=== PATIENT | male | born 1990 | race Caucasian/White ===

== ENCOUNTER 2024-12-14 00:58 | Emergency (ER) | payer OTHER ==
[2024-12-14 01:15] VITALS: RESP 18; TEMP 99.1
--- NOTE | 2024-12-14 01:56 | ED ---
General Adult HPI - General Chief complaint: Syncope Stated complaint: Scynope Time Seen by Provider: 12/14/24 01:18 Source: patient, EMS Mode of arrival: EMS Limitations: no limitations - History of Present Illness Initial comments: Patient is a 34-year-old male with past medical history of alcoholism presenting today for syncopal episode. Patient was at [facility] where he had reported for rehabilitation from alcoholism earlier today when he stood up from his chair walked about 10 feet felt lightheaded and had a syncopal episode. He does not think he was unconscious for very long and he did not have any seizure-like activity noted. He did not bite his tongue or have urinary incontinence. Patient states that this happened to him about 4 times last summer. He was admitted and had an extensive evaluation without any significant findings, per patient. He denies any family history of sudden cardiac currently denies any chest pain or shortness of breath. He did hit his head after he syncopized and and currently denies any headache, dizziness, numbness or weakness. Denies neck pain. Is not on blood thinners. He does feel shaky. No history alcohol w/drawl seizures. Last drink was yesterday morning. States he does infrequen tly use cocaine, last use was about 1 week ago. Denies any recent nausea, vomiting, diarrhea, abdominal pain, melena or hematochezia. Denies hemoptysis, history of cancer, is not on hormone replacement therapy and is a non-smoker. No recent surgeries, hospitalizations, or travel. Denies fevers, endorses chills. Denies any auditory or visual hallucinations. History of alcohol withdrawal seizures. - Related Data Allergies Allergy/AdvReac Type Severity Reaction Status Date / Time No Known Allergies Allergy Verified 12/14/24 01:15 Review of Systems ROS Statement: Those systems with pertinent positive or pertinent negative responses have been documented in the HPI. ROS Other: All systems not noted in ROS Statement are negative. Past Medical History Past Medical History: No Reported History Additional Past Surgical History / Comment(s): colonoscopy Past Psychological History: Depression Smoking Status: Vaper Past Alcohol Use History: Daily Past Drug Use History: Cocaine General Exam - General Exam Comments Initial Comments: PE: CONSTITUTIONAL: No apparent distress, well appearing SKIN: Warm, dry, no jaundice, hives or petechiae EYES: Pupils are equally round, extraocular movements intact without nystagmus, clear conjunctiva, non-icteric sclera HENT: Normocephalic, small contusion to the right posterior occiput, dry mucus membranes, oropharynx clear without exudates, mild tongue fasciculations NECK: , Full range of motion, normal appearance, no midline spinal tenderness to palpation, . There is no midline cervical neck tenderness or step-offs. The patient denies any numbess, tingling, or weakness of the extremities when moving neck through full ROM. The patient is able to range their neck completely without midline cervical pain, numbness, tingling or weakness. PULMONARY: Clear to auscultation without wheezes, rhonchi, or rales, normal excursion, no accessory muscle use and no stridor CARDIOVASCULAR: Regular rate, rhythm, normal S1 and S2. No appreciated murmurs, rubs or gallops. Strong radial pulses with intact distal perfusion. No lower extremity edema GASTROINTESTINAL: Soft, active bowel sounds throughout, non-tender, non- distended, no palpable masses, no rebound or guarding. No hepatosplenomegaly MUSCULOSKELETAL: Extremities have no gross deformity, no edema, redness, or swelling. No calf swelling NEUROLOGIC:_a/o x 3, GCS 15, normal mentation and speech. Moves all extremities x 4 without motor or sensory deficit. Mild tremor in the bilateral UE with hands outstretched PSYCHIATRIC:_normal mood and affect, thought process is clear and linear Limitations: no limitations Course Vital Signs 12/14/24 12/14/24 12/14/24 01:08 04:10 05:18 Temperature 99.1 F Pulse Rate 78 70 70 Respiratory 18 18 18 Rate Blood Pressure 130/69 121/71 122/75 O2 Sat by Pulse 96 97 95 Oximetry EKG Findings - EKG Comments: EKG Findings:: Sinus rhythm, rate 63 bpm MS interval 124 ms QRS duration 96 ms QT/QTc 456/464 ms, prolonged QT interval, normal axis, no ST elevations or depressions, no Brugada pattern, no delta waves. Repeat EKG performed due to prolonged QT on initial EKG. Performed at 4:56 AM, rate 64 bpm MS interval 138 ms QT/QTc 418/420 ms, normal axis, no ST elevations or depressions, no arrhythmia Medical Decision Making - Medical Decision Making Was pt. sent in by a medical professional or institution ([facility], [facility], urgent care, hospital, or residential...) When possible be specific Patient was sent by [facility] Did you speak to anyone other than the patient for history (EMS, parent, family, police, friend...)? What history was obtained from this source @ -No Did you review nursing and triage notes (agree or disagree)? Why? @ -I reviewed nursing and triage notes Were old charts reviewed (outside hosp., previous admission, EMS record, old EKG, old radiological studies, urgent care reports/EKG's, residential records)? Report findings @ -Medical records reviewed no prior records available for review Differential Diagnosis (chest pain, altered mental status, abdominal pain women, abdominal pain men, vaginal bleeding, weakness, fever, dyspnea, syncope, headache, dizziness, GI bleed, back pain, seizure, CVA, palpatations, mental health, musculoskeletal)? @Differential Syncope: Valvular disease, hypertrophic cardiomyopathy, tamponade, tachycardia, bradycardia, ACS, arrhythmia, hypovolemia,anemia, seizure, hypoglycemia, this is not meant to be an all-inclusive list. EKG interpreted by me (3pts min.). @ -As above X-rays interpreted by me (1pt min.). @X-ray shows no cardiomegaly, consolidations or pneumothorax CT interpreted by me (1pt min.). @CT brain shows no evidence of hemorrhage or skull fracture U/S interpreted by me (1pt. min.). @ -None done What testing was considered but not performed or refused? (CT, X-rays, U/S, labs)? Why? @ -None What meds were considered but not given or refused? Why? @ -None Did you discuss the management of the patient with other professionals (professionals i.e. [facility], [facility], lab, RT, psych nurse, social worker clinical, consumer advocate, t eacher, command center officer, caser up)? Give summary @ -No Was smoking cessation discussed for >3mins.? @ -No Was critical care preformed (if so, how long)? @ -No Were there social determinants of health that impacted care today? How? (Homelessness, low income, unemployed, alcoholism, drug addiction, transportation, low edu. Level, literacy, decrease access to med. care, shelter, rehab)? @Yes, alcohol addiction Was there de-escalation of care discussed even if they declined (Discuss DNR or withdrawal of care, Hospice)? @ -No What co-morbidities impacted this encounter? (DM, HTN, Smoking, COPD, CAD, Cancer, CVA, ARF, Chemo, Hep., AIDS, mental health diagnosis, sleep apnea, morbid obesity)? Alcoholism Was patient admitted / discharged? Hospital course, mention meds given and route, prescriptions, significant lab abnormalities, going to OR and other pertinent info. @Discharged -patient is a 34-year-old gentleman presenting from [facility] rehab facility today for syncopal episode.Vital signs within acceptable limits on arrival, no hypotension or tachycardia noted. On my assessment patient has c-collar on however CT C-spine not indicated according to Stanley C-spine rule negative. Cleared patient C-spine. Exam otherwise significant for small hematoma to the posterior occiput, no focal neurologic deficits, patient does have mild tongue fasciculations and mild tremors with arms outstretched. No seizure-like activity. At the top my differential is arrhythmia, alcohol drawl seizure, orthostatic hypotension or electrolyte abnormality, additional differentials as noted above. CIWA 3, will administer 5 oral valium, IV fluids, vitamins. Will obtain CT brain due to syncopal episode with head trauma and palpable hematoma. Hemoglobin noted to be 9.3, labs consistent with microcytic anemia. Patient earlier denied melena or hematochezia. I suspect anemia secondary to malnutri tion in the setting of alcoholism. Magnesium 1.6. IV magnesium given repeat EKG performed showed shortening of the QT interval. On reassessment patient's withdrawal symptoms have improved though he is still mildly tremulous. Will provide with additional oral Valium. Given low CIWA, patient has had a prior workup for syncopal episodes, otherwise unremarkable workup here, plan for discharge back to [facility]. Patient agreeable with plan of care. In my medical judgment there is currently no evidence of an immediate life- threatening or surgical condition. Discharge is therefore indicated at this time. Discharge treatment instructions, follow up instructions, and appropriate emergency department return precautions were discussed with the patient and/or medical decision maker. Patient and/or medical decision maker expressed understanding of and agreed with the treatment plan, follow up instructions, and emergency department return precaution. All patient's and/or medical decision maker's questions were answered. Undiagnosed new problem with uncertain prognosis? @ -No Drug Therapy requiring intensive monitoring for toxicity (Heparin, Nitro, Insulin, Cardizem)? @ -No Were any procedures done? @ -No Diagnosis/symptom? @Syncopal episode Acute, or Chronic, or Acute on Chronic? @ -Acute Uncomplicated (without systemic symptoms) or Complicated (systemic symptoms)? @Complicated Side effects of treatment? @ -No Exacerbation, Progression, or Severe Exacerbation? @ -No Poses a threat to life or bodily function? How? (Chest pain, [place], [place], pneumonia, PE, COPD, DKA, ARF, appy, cholecystitis, CVA, Diverticulitis, Homicidal, Suicidal, threat to staff... and all critical care pts) @ -[No - Lab Data Result diagrams: 12/14/24 01:14 12/14/24 01:14 Lab Results 12/14/24 12/14/24 12/14/24 Range/Units 01:14 01:14 01:14 WBC 6.1 (3.8-10.6) k/uL RBC 4.07 L (4.30-5.90) m/uL Hgb 9.3 L (13.0-17.5) gm/dL Hct 29.0 L (39.0-53.0) % MCV 71.3 L (80.0-100.0) fL MCH 22.8 L (25.0-35.0) pg MCHC 31.9 (31.0-37.0) g/dL RDW 19.2 H (11.5-15.5) % Plt Count 164 (150-450) k/uL MPV 7.9 Neutrophils % 64 % Lymphocytes % 24 % Monocytes % 8 % Eosinophils % 2 % Basophils % 0 % Neutrophils # 3.9 (1.3-7.7) k/uL Lymphocytes # 1.4 (1.0-4.8) k/uL Monocytes # 0.5 (0-1.0) k/uL Eosinophils # 0.1 (0-0.7) k/uL Basophils # 0.0 (0-0.2) k/uL Hypochromasia Marked Anisocytosis Slight Microcytosis Marked PT 12.3 (10.0-12.5) sec INR 1.1 (<1.2) APTT 19.6 L (22.0-30.0) sec Sodium 133 L (137-145) mmol/L Potassium 4.1 (3.5-5.1) mmol/L Chloride 98 (98-107) mmol/L Carbon Dioxide 21 L (22-30) mmol/L Anion Gap 14 mmol/L BUN 11 (9-20) mg/dL Creatinine 0.90 (0.66-1.25) mg/dL Est GFR (CKD-EPI)AfAm >90 (>60 ml/min/1.73 sqM) Est GFR (CKD-EPI)NonAf >90 (>60 ml/min/1.73 sqM) Glucose 89 (74-99) mg/dL POC Glucose (mg/dL) (70-110) mg/dL POC Glu Advertising Editor ID Calcium 8.6 (8.4-10.2) mg/dL Phosphorus 4.6 H (2.5-4.5) mg/dL Magnesium 1.6 (1.6-2.3) mg/dL Total Bilirubin 0.8 (0.2-1.3) mg/dL AST 49 (17-59) U/L ALT 38 (4-49) U/L Alkaline Phosphatase 89 (38-126) U/L Troponin I (0.000-0.034) ng/mL Total Protein 6.6 (6.3-8.2) g/dL Albumin 3.9 (3.5-5.0) g/dL 12/14/24 12/14/24 Range/Units 01:14 02:07 WBC (3.8-10.6) k/uL RBC (4.30-5.90) m/uL Hgb (13.0-17.5) gm/dL Hct (39.0-53.0) % MCV (80.0-100.0) fL MCH (25.0-35.0) pg MCHC (31.0-37.0) g/dL RDW (11.5-15.5) % Plt Count (150-450) k/uL MPV Neutrophils % % Lymphocytes % % Monocytes % % Eosinophils % % Basophils % % Neutrophils # (1.3-7.7) k/uL Lymphocytes # (1.0-4.8) k/uL Monocytes # (0-1.0) k/uL Eosinophils # (0-0.7) k/uL Basophils # (0-0.2) k/uL Hypochromasia Anisocytosis Microcytosis PT (10.0-12.5) sec INR (<1.2) APTT (22.0-30.0) sec Sodium (137-145) mmol/L Potassium (3.5-5.1) mmol/L Chloride (98-107) mmol/L Carbon Dioxide (22-30) mmol/L Anion Gap mmol/L BUN (9-20) mg/dL Creatinine (0.66-1.25) mg/dL Est GFR (CKD-EPI)AfAm (>60 ml/min/1.73 sqM) Est GFR (CKD-EPI)NonAf (>60 ml/min/1.73 sqM) Glucose (74-99) mg/dL POC Glucose (mg/dL) 101 (70-110) mg/dL POC Glu Advertising Editor ID Agustin Solis Calcium (8.4-10.2) mg/dL Phosphorus (2.5-4.5) mg/dL Magnesium (1.6-2.3) mg/dL Total Bilirubin (0.2-1.3) mg/dL AST (17-59) U/L ALT (4-49) U/L Alkaline Phosphatase (38-126) U/L Troponin I <0.012 (0.000-0.034) ng/mL Total Protein (6.3-8.2) g/dL Albumin (3.5-5.0) g/dL Disposition Clinical Impression: Syncope Disposition: HOME SELF-CARE Condition: Good Instructions (If sedation given, give patient instructions): Syncope (ED) Additional Instructions: [facility] law states that you are unable to drive or operate heavy machinery for 6 months after seizure or syncopal event. Please follow-up with your PCP for clearance Every disease is a spectrum and a small chance still exists that a serious condition could develop, for this reason, please monitor yourself closely for new, changing or worsening symptoms, additional episodes of passing out, changes in vision, slurred speech, numbness or weakness or strokelike symptoms, chest pain or difficulty in breathing, palpitations, fever, inability to tolerate/keep down fluids or your medications, inability to follow up with outpatient providers as instructed and should you experience these symptoms or should you have any further concerns for your wellbeing please return to the ED or call 911 immediately. Please drink plenty of fluids and get plenty of rest PLEASE call your primary care physician as soon as possible to arrange / discuss plan for followup appointment. Appointment in the next 1-3 days is strongly encouraged if possible. PLEASE let us know here before you leave if there is anything further we can do to be of any assistance. Take care and feel Better! . Is patient prescribed a controlled substance at d/c from ED?: No Referrals: None,Stated [Primary Care Provider] - 1-2 days
[2024-12-14] MEDS: MULTIVITAMINS, THERA 1 EACH TAB PO STA (02:00)
[2024-12-14] MEDS: diazePAM 5 MG TAB PO STA ×2 (02:01→04:07)
[2024-12-14] MEDS: FOLIC ACID 1 MG TAB PO STA (02:01)
[2024-12-14] MEDS: SODIUM CHLORIDE 0.9% 1,000 ML IV STA (02:01)
[2024-12-14] MEDS: THIAMINE 100 MG/ML 2 ML VIAL IM STA (02:02)
[2024-12-14 02:08] LABS: Glucose,Whole Blood 101 mg/dL (70-110)
[2024-12-14 02:28] LABS: Anisocytosis Slight; Basophils % (A) 0 %; Eosinophils # (A) 0.1 k/uL (0-0.7); Eosinophils % (A) 2 %; HGB 9.3 gm/dL (13.0-17.5); Hypochromasia Marked; Lymphocytes # (A) 1.4 k/uL (1.0-4.8); Lymphocytes % (A) 24 %; MCH 22.8 pg (25.0-35.0); MCHC 31.9 g/dL (31.0-37.0); MCV 71.3 fL (80.0-100.0); Mean Platelet Volume 7.9; Microcytosis Marked; Monocytes # (A) 0.5 k/uL (0-1.0); Monocytes % (A) 8 %; Neutrophils # (A) 3.9 k/uL (1.3-7.7); Neutrophils % (A) 64 %; Platelet Count 164 k/uL (150-450); RBC 4.07 m/uL (4.30-5.90); RDW 19.2 % (11.5-15.5); WBC 6.1 k/uL (3.8-10.6)
[2024-12-14 02:39] LABS: ALT 38 U/L (4-49); AST 49 U/L (17-59); African American GFR (CKD) >90 (>60 ml/min/1.73 sqM); Albumin 3.9 g/dL (3.5-5.0); Alkaline Phosphatase 89 U/L (38-126); Anion Gap 14 mmol/L; Blood Urea Nitrogen 11 mg/dL (9-20); Calcium 8.6 mg/dL (8.4-10.2); Carbon Dioxide 21 mmol/L (22-30); Chloride 98 mmol/L (98-107); Glucose 89 mg/dL (74-99); Magnesium 1.6 mg/dL (1.6-2.3); Non-African American GFR(CKD) >90 (>60 ml/min/1.73 sqM); Phosphorus 4.6 mg/dL (2.5-4.5); Potassium 4.1 mmol/L (3.5-5.1); Sodium 133 mmol/L (137-145); Total Bilirubin 0.8 mg/dL (0.2-1.3); Total Protein 6.6 g/dL (6.3-8.2)
[2024-12-14 02:46] LABS: INR 1.1 (<1.2); Prothrombin Time 12.3 sec (10.0-12.5)
--- NOTE | 2024-12-14 03:07 | CT ---
EXAM: CT Head Without Intravenous Contrast CLINICAL HISTORY: ITS.REASON CT Reason: syncope, hit back of head TECHNIQUE: Axial computed tomography images of the head/brain without intravenous contrast. CTDI is 49.1 mGy and DLP is 1168.4 mGy-cm. This CT exam was performed using one or more of the following dose reduction techniques: automated exposure control, adjustment of the mA and/or kV according to patient size, and/or use of iterative reconstruction technique. COMPARISON: No relevant prior studies available. FINDINGS: Brain: No hemorrhage or mass effect. Ventricles: No hydrocephalus. Bones/joints: Unremarkable. Soft tissues: Unremarkable. Sinuses: No air fluid level. Right maxillary sinus mucosal retention cysts Mastoid air cells: Clear. IMPRESSION: No acute hemorrhage, hydrocephalus, or mass effect.
[2024-12-14 03:34] LABS: Partial Thromboplastin Time 19.6 sec (22.0-30.0)
--- NOTE | 2024-12-14 03:47 | XR ---
EXAM: XR Chest, 2 Views CLINICAL HISTORY: ITS.REASON XR Reason: syncope TECHNIQUE: Frontal and lateral views of the chest. COMPARISON: No relevant prior studies available. FINDINGS: Lungs: No consolidation or mass. Pleural space: No effusion. Heart: No cardiomegaly. Bones/joints: No acute findings. IMPRESSION: No acute cardiopulmonary process.
[2024-12-14] MEDS: MAGNESIUM SULFATE-D5W PMX 1 GM in DEXTROSE/WATER 1 100ML.BAG IVPB ONE (04:07)
[2024-12-14] MEDS: MAGNESIUM OXIDE 400 MG TAB PO STA (04:07)
[2024-12-14 04:11] VITALS: PULSE 70
[2024-12-14 05:18] VITALS: BP 122/75
== END 2024-12-14 05:18 | disposition home or self-care (01) ==
LOC: EC 00:58
DX: R55 Syncope and collapse (principal); F10.20 Alcohol dependence, uncomplicated; F17.290 Nicotine dependence, other tobacco product, uncomplicated
CPT/HCPCS: 36415; 93005; 80053; 83735; 84100; 84484; 85025; 85610; 85730; 71046; 70450; 99285; 96365; 96372; 96361; J3411; J3475